=== PATIENT | male | born 1975 | race African-American/Black ===

== ENCOUNTER 2017-04-17 15:50 | Emergency (ER) | payer MEDICAID, OTHER ==
[~2017-04-17] VITALS: Ht 180.3 cm; Wt 97.5 kg
--- NOTE | 2017-04-17 16:02 | NUR ---
Dr Scott at the bedside for eval and exam.
--- NOTE | 2017-04-17 16:14 | NUR ---
Patient discharged to home in stable conditon. Written and verbal after care instructions given. Patient verbalizes understanding of instructions. pt left ER w/ steady gait accompained by family.
[2017-04-17 16:17] VITALS: BP 113/64
== END 2017-04-17 16:18 | disposition home or self-care (01) ==
LOC: ER 15:51
DX: F10.239 Alcohol dependence with withdrawal, unspecified (principal); Z88.1 Allergy status to other antibiotic agents
CPT/HCPCS: A4663